=== PATIENT | female | born 1985 | race Caucasian/White ===

== ENCOUNTER 2018-04-08 21:53 | Emergency (ER) | payer BC, OTHER ==
[2018-04-09 00:21] LABS: ADD MAN DIFF? NO
[2018-04-09 00:23] LABS: WHITE BLOOD COUNT 11.5 10^3/ul (4.8-10.8)
[2018-04-09 00:23] LABS: BASOPHILS % 0.3 % (0.0-2.0); EOSINOPHILS % 0.1 % (0.0-7.0); HEMATOCRIT 34.1 % (37.0-47.0); LYMPHOCYTES # 1.4 10^3/ul (0.8-2.9); LYMPHOCYTES % 12.5 % (15.0-51.0); MEAN CORPUSCULAR HEMOGLOBIN 26.4 pg (29.0-33.0); MEAN CORPUSCULAR HGB CONC 32.3 g/dl (32.0-37.0); MEAN CORPUSCULAR VOLUME 81.8 fl (82.0-101.0); MEAN PLATELET VOLUME 11.2 fl (7.4-10.4); MONOCYTE # 0.8 10^3/ul (0.3-0.9); MONOCYTES % 7.3 % (0.0-11.0); NEUTROPHIL # 9.2 10^3/ul (1.6-7.5); NEUTROPHILS % 79.5 % (39.0-77.0); PLATELET COUNT 301 10^3/UL (140-415); RED BLOOD COUNT 4.17 10^6/ul (4.20-5.40); RED CELL DISTRIBUTION WIDTH 14.7 % (11.5-14.5)
[2018-04-09] MEDS: SODIUM CHLORIDE 0.9% 1L BAG IV* (00:27)
[2018-04-09 00:28] LABS: URINE BLOOD (Dip) POC 2+ (NEGATIVE); URINE GLUCOSE (Dip) POC Negative (NEGATIVE); URINE KETONES (Dip) POC Negative (NEGATIVE); URINE LEUKOCYTE EST (Dip) POC 1+ (NEGATIVE); URINE NITRITE (Dip) POC Negative (NEGATIVE); URINE TOTAL PROTEIN POC Trace (NEGATIVE)
[2018-04-09] MEDS: ONDANSETRON 4 MG INJ IV (00:38)
[2018-04-09] MEDS: morphine 2 MG INJ IV (00:38)
[2018-04-09 00:42] LABS: INR 0.95; PROTIME 12.8 Sec (11.9-14.9)
[2018-04-09 00:43] LABS: PARTIAL THROMBOPLASTIN TIME 30.1 Sec (23.0-35.0)
[2018-04-09 00:44] LABS: ALANINE AMINOTRANSFERASE 14 IU/L (13-69); ALBUMIN 4.6 g/dl (3.3-4.9); ALBUMIN/GLOBULIN RATIO 1.35; ALKALINE PHOSPHATASE 80 IU/L (42-121); ANION GAP 13 (5-13); ASPARTATE AMINO TRANSFERASE 21 IU/L (15-46); BILIRUBIN,INDIRECT 0.4 mg/dl (0-1.1); BILIRUBIN,TOTAL 0.4 mg/dl (0.2-1.3); BLOOD UREA NITROGEN 5 mg/dl (7-20); CALCIUM 9.4 mg/dl (8.4-10.2); CARBON DIOXIDE 23 mmol/L (21-31); CHLORIDE 104 mmol/L (97-110); Estimated GFR > 60 mL/min (>60); GLUCOSE 97 mg/dl (70-220); POTASSIUM 3.5 mmol/L (3.5-5.1); SODIUM 140 mmol/L (135-144)
[2018-04-09 00:55] LABS: TROPONIN-I < 0.012 ng/ml (0.000-0.120)
[2018-04-09] MEDS: KETOROLAC 30 MG INJ IV (00:56)
[2018-04-09] MEDS: CEFTRIAXONE 1 GM/50 ML (PMX) 50 ML IVPB (01:00)
[2018-04-09] MEDS: SOD CHLORIDE 0.9% 1,000 ML IV (02:41)
== END 2018-04-09 05:34 | disposition home or self-care (01) ==
LOC: FTE 21:53
DX: N12 Tubulo-interstitial nephritis, not specified as acute or chronic (principal); E86.0 Dehydration; D64.9 Anemia, unspecified
CPT/HCPCS: 36415; 71045; 74176; 80053; 81003; 81025; 83605; 84484; 85025; 85610; 85730; 87040; 93005; 96374; 96375; 99285-25